=== PATIENT | male | born 1955 | race Caucasian/White ===

== ENCOUNTER → 2021-07-31 | Outpatient (CLI) | payer BC ==
--- NOTE | 2021-07-31 12:47 | KCIC ---
Diagnostic bilateral mammogram INDICATION: 65 year-old male patient. Notices inversion of the right nipple and redness of his right areolar. He has symptoms for approximately 1 year. He gives a history of bilateral mastectomy in 1986 . Family history of breast carcinoma in his mother. FINDINGS: Breast density: There are scattered areas of fibroglandular density. The right nipple is inverted. There are benign skin calcifications in the right periareolar region w hich may be normal following surgery. No discrete mass, malignant appearing calcifications, or carter ectural distortion is seen. There is a small amount of fibroglandular tissue in the posterior central left breast consistent with mild gynecomastia. No right gynecomastia is seen. IMPRESSION: There is right nipple inversion. It is possible this may be related to prior surgery for removal of breast tissue. Some redness of the right areola is noted. Clinical follow-up of the nipple inversion and skin changes is recommended. There is no evidence of malignancy. Mild left gynecomasti a. ASSESSMENT: BI-RADS 2. Benign findings. Recommendations: Clinical follow-up is recommended. Information will not be entered into the mammography reminder system for this male patient. Electronically signed by: Brittany Hammer MD (07/31/2021 12:45 PM) [email or web address]
== END ==
LOC: KCIC MAMMO 10:54
PROVIDERS: ATTEND Family Medicine
DX: N62 Hypertrophy of breast (principal); N64.59 Other signs and symptoms in breast; L81.9 Disorder of pigmentation, unspecified; R92.8 Other abnormal and inconclusive findings on diagnostic imaging of breast
CPT/HCPCS: 77066